=== PATIENT | male | born 1995 | race Two or more races ===

== ENCOUNTER 2023-04-26 12:24 | Emergency (ER) | payer OTHER ==
[~2023-04-26] VITALS: Ht 167.6 cm; Wt 68.0 kg
== END 2023-04-26 17:46 | disposition home or self-care (01) ==
LOC: ER 12:25
DX: S80.811A Abrasion, right lower leg, initial encounter (principal); X58.XXXA Exposure to other specified factors, initial encounter; Y93.89 Activity, other specified; Y92.89 Other specified places as the place of occurrence of the external cause; Y99.9 Unspecified external cause status